=== PATIENT | female | born 1980 | race Caucasian/White ===

== ENCOUNTER 2020-06-03 13:02 | Emergency (ER) | payer OTHER ==
[~2020-06-03] VITALS: Ht 170.2 cm; Wt 107.7 kg
[2020-06-03 13:02] VITALS: BP 146/72
[2020-06-03] MEDS ORDERED: HYDR25TAB (13:11)
[2020-06-03] MEDS ORDERED: RIZA10TA2 (13:11)
[2020-06-03] MEDS ORDERED: LISI10TA4 (13:11)
--- NOTE | 2020-06-03 13:58 | REP ---
INDICATION: fall COMPARISON: None. TECHNIQUE: Axial noncontrast images from the skull base to the vertex with coronal reformations. This CT examination was performed using the following dose reduction techniques: Automated exposure control, adjustment of mA and/or kv according to the patient's size, and use of iterative reconstruction technique. FINDINGS: The ventricles, sulci, and cisterns are normal in position and appearance. Ramsay-white differentiation is maintained. No acute intracranial hemorrhage, mass/mass effect, pathology or trauma/injury. No evidence for acute infarction. No extra-axial fluid collection. Calvarium is intact. Paranasal sinuses and mastoid air cells are clear. Subtle minimally depressed anterior nasal bone fracture suggested and should be correlated with physical examination. IMPRESSION: Normal noncontrast head CT. No evidence for acute intracranial pathology or trauma/injury. Possible acute anterior nasal bone fracture. <Electronically signed by Vivek Dalton > 06/03/20 [id number]
--- NOTE | 2020-06-03 13:59 | REP ---
INDICATION: fall COMPARISON: None. TECHNIQUE: Axial noncontrast images from the skull base to the thoracic inlet with coronal and sagittal re-formations This CT examination was performed using the following dose reduction techniques: Automated exposure control, adjustment of mA and/or kv according to the patient's size, and use of iterative reconstruction technique. FINDINGS: Normal alignment and lordosis is maintained. Cervical vertebral bodies including transverse processes and spinous processes are intact and there is no evidence for acute fracture / compression injury or subluxation. Spinal canal is patent. Posterior elements are intact. Paravertebral soft tissues are normal. IMPRESSION: Normal noncontrast cervical spine CT. No evidence for acute pathology or trauma/injury. <Electronically signed by Vivek Dalton > 06/03/20 [id number]
--- NOTE | 2020-06-03 14:00 | REP ---
INDICATION: fall. COMPARISON: None. TECHNIQUE: Axial noncontrast images of the thoracic spine with coronal and sagittal reformations. FINDINGS: Thoracic vertebral bodies are intact and without acute fracture/compression injury or subluxation. Alignment and kyphosis maintained. Disc spaces are normal. Spinal canal is patent and normal. Posterior elements and spinous processes are intact. Paravertebral soft tissues are normal. IMPRESSION: Normal thoracic spine CT. No evidence for acute trauma/injury. <Electronically signed by Vivek Dalton > 06/03/20 [id number]
--- NOTE | 2020-06-03 14:07 | REP ---
INDICATION: fall COMPARISON: None. TECHNIQUE: Axial noncontrast images through the facial bones to include the mandible with coronal and sagittal re-formations. FINDINGS: There is a minimally depressed anterior nasal bone fracture (series 301; images 27-29). Remainder of the osseous structures are intact and without further acute fracture or dislocation. Sinuses and mastoid air cells are clear and without fluid level to suggest occult injury. Bilateral orbits are symmetric and without pathology or trauma. IMPRESSION: Subtle minimally depressed anterior nasal bone fracture. <Electronically signed by Vivek Dalton > 06/03/20 [id number]
== END 2020-06-03 14:29 | disposition home or self-care (01) ==
LOC: M ED 13:02
DX: S02.2XXA Fracture of nasal bones, initial encounter for closed fracture (principal); S09.90XA Unspecified injury of head, initial encounter; T14.8XXA Other injury of unspecified body region, initial encounter; W10.9XXA Fall (on) (from) unspecified stairs and steps, initial encounter; Y92.099 Unspecified place in other non-institutional residence as the place of occurrence of the external cause; Y93.9 Activity, unspecified; Y99.9 Unspecified external cause status; I10 Essential (primary) hypertension